=== PATIENT | male | born 1950 | race Caucasian/White ===

== ENCOUNTER 2016-09-05 08:24 | Emergency (ER) | payer BC, MEDICARE, OTHER ==
[2016-09-05 10:02] VITALS: BP 156/72
--- NOTE | 2016-09-08 08:55 | ER ---
DATE SEEN: 09/05/2016 TIME SEEN: The patient was seen at 0830 hours. CHIEF COMPLAINT: Blood per rectum. HISTORY OF PRESENT ILLNESS: This is a 66-year-old patient who is obese, 270 pounds, and has recently been placed on Suboxone in [facility] to go off his chronic narcotics. He got off the Suboxone and is no longer taking chronic narcotics approximately 3 months ago. He has had chronic obstructive lung disease, diabetes, and his glucose is running 400 and 300, hypertension, previous WPW ablation successfully and lower back lumbar surgeries and 1 neck surgery, also shoulder surgery left. Last colonoscopy was 2015. The patient has mild suprapubic abdominal discomfort with GI bleed. Noticed bright red rectal bleeding past 2 days. He also notes increased frequency in urination 09/02/2016. PAST MEDICAL HISTORY: Chronic obstructive lung disease, depression, anxiety, GERD, obesity, prostatism, dyslipidemia, chronic pain, multiple back surgeries, cervical and spine surgery x1. REVIEW OF SYSTEMS: Otherwise, negative except for noted above. PHYSICAL EXAMINATION: VITAL SIGNS: Blood pressure 112/76, heart rate 96 and regular, respirations 20, and 98% saturation room air. CONSTITUTIONAL: The patient is alert, in mild distress. Markedly obese. Has massive protuberant abdomen. He looks his age and is attended by his . HEENT: PERRLA intact. Pharynx without abnormality. NECK: No bruits. No masses in the neck. No thyromegaly. LUNGS: Clear to auscultation without rales, rhonchi, or wheezes. ABDOMEN: Soft, but markedly firm because of his massive obesity. Massive increased abdominal girth. EXTREMITIES: Lower extremities without edema. RECTAL: Rectal inspection, small amount of swelling. No hemorrhoids noted. Rectal exam with lubricant, no hemorrhoids or masses palpable. Neuro: Negative. LABORATORY FINDINGS: Hemoglobin is 14.7, white count 7400, PMNs 63, lymphocytes 28, monos 7, and platelets 320,000. Bright red rectal bleeding, etiology indeterminate, rule out AV malformation, rule out diverticulosis, rule out polyp, rule out cancer (Recent 2015 colonoscopy and no polyps noted or cancers noted). PLAN: Follow up with doctor in a week. He has had a colonoscopy at the [facility], but he said he would probably get a colonoscopy here because he has also private insurance. Other diagnoses; hypertension, obesity, diabetes, WPW ablation successful and WPW controlled without medication, 3 back surgeries, left shoulder surgery, previous surgery for fractured tibia, and colonoscopy 2016. /[id number] ROSARIO/GINGER
== END 2016-09-05 09:50 | disposition home or self-care (01) ==
LOC: FB.ED 08:24
DX: K62.5 Hemorrhage of anus and rectum (principal); E66.9 Obesity, unspecified; J44.9 Chronic obstructive pulmonary disease, unspecified; F32.9 Major depressive disorder, single episode, unspecified; F41.9 Anxiety disorder, unspecified; K21.9 Gastro-esophageal reflux disease without esophagitis; E78.5 Hyperlipidemia, unspecified; Z98.890 Other specified postprocedural states
CPT/HCPCS: 36415; 85025; 99282; 99283

== ENCOUNTER 2016-12-23 20:46 | Emergency (ER) | payer BC, MEDICARE, OTHER ==
[2016-12-23] MEDS ORDERED: Ketorolac 30 MG/ML SDV IM ONE (21:19)
[2016-12-23] MEDS ORDERED: Acetaminophen/HYDROcodone 325-5 MG Tab PO ONE (21:37)
--- NOTE | 2016-12-23 21:40 | EDM.PDOC ---
ED HPI GENERAL MEDICAL PROBLEM - General Chief Complaint: Upper Extremity Injury/Pain Stated Complaint: RIGHT SHOULDER INJURY Time Seen by Provider: 12/23/16 21:25 Source of Information: Reports: Patient History Limitations: Reports: No Limitations - History of Present Illness INITIAL COMMENTS - FREE TEXT/NARRATIVE: 66 yo male presents with R shoulder pain. Had R rotator cuff repair 1 yr ago at [facility]. Tonight was holding his arms above his head and when he let them fall he experienced severe pain the the R shoulder associated with a pop and now has trouble moving that arm at the shoulder. Onset: Today Onset Date: 12/23/16 Onset Time: 20:00 Duration: Minutes: Location: Reports: Upper Extremity, Right Quality: Reports: Ache Severity: Moderate Improves with: Reports: Rest Worsens with: Reports: Movement Context: Reports: Other (Hx of rotator cuff tear. ) Associated Symptoms: Reports: No Other Symptoms Treatments [employer] T[employer]OL: Reports: Other (see below) (none) R shoulder Pain Score (Numeric/FACES): 10 - Related Data Allergies Allergy/AdvReac Type Severity Reaction Status Date / Time clindamycin Allergy Rash Verified 12/23/16 21:19 bee stings Allergy Shortness Uncoded 12/23/16 21:19 of Breath Home Meds: Home Meds Lactobacillus Acidophilus [Probiotic] 1 each PO DAILY 06/14/13 [History] Lansoprazole [Prevacid] 30 mg PO BID 06/14/13 [History] Multivitamin with Minerals [Multiple Vitamin] 1 tab PO DAILY 06/14/13 [History] [place]-3/DHA/Epa/Fish Oil [[place]-3 Fish Oil 1,200 MG Sfgl] 2 tab PO DAILY [History] Simvastatin [Zocor] 20 mg PO DAILY 06/14/13 [History] Tamsulosin [Tamsulosin 24 Hr] 0.4 mg PO DAILY 06/14/13 [History] Vardenafil HCl [Levitra] 10 mg PO DAILY PRN 06/14/13 [History] traZODone 100 mg PO BEDTIME 06/14/13 [History] LORazepam 0.5 mg PO TID 08/07/13 [History] Escitalopram [Lexapro] 10 mg PO DAILY 05/08/15 [History] Escitalopram [Lexapro] 20 mg PO DAILY 05/08/15 [History] Gabapentin [Neurontin] 800 mg PO DAILY 05/08/15 [History] busPIRone [Buspar] 15 mg PO BEDTIME 05/08/15 [History] busPIRone [Buspar] 30 mg PO QAM 05/08/15 [History] Acetaminophen/HYDROcodone [[place] 325-5 MG] 1 tab PO Q4H PRN #8 tab 12/23/16 [Rx] Past Medical History - Past Health History Medical/Surgical History: Denies Medical/Surgical History Cardiovascular History: Reports: High Cholesterol, Hypertension, Other (See Below) Other Cardiovascular History: Hx WPW Respiratory History: Reports: COPD, Sleep Apnea Gastrointestinal History: Reports: Gastritis, GERD, PUD, Other (See Below) Other Gastrointestinal History: umbellical hernia Genitourinary History: Reports: Prostate Disorder Musculoskeletal History: Reports: Arthritis, Fracture Other Musculoskeletal History: Hx L femur fx, L tibia fx, R hand & wrist fx, fx fingers R hand Neurological History: Reports: Concussion Psychiatric History: Reports: Addiction, Anxiety, Depression, Panic Attack Other Psychiatric History: hx ETOH & pain med & drug addiction Endocrine/Metabolic History: Reports: Diabetes, Type II, Obesity/BMI 30+ - Infectious Disease History Infectious Disease History: Reports: Chicken Pox, Measles, Mumps - Past Surgical History HEENT Surgical History: Reports: None, Oral Surgery, Tonsillectomy Cardiovascular Surgical History: Reports: Cardiac Ablation GI Surgical History: Reports: Appendectomy, Colonoscopy, EGD, Hernia, Inguinal Other GI Surgeries/Procedures: L hernia repair Neurological Surgical History: Reports: C-Spine, Laminectomy Other Neurological Surgeries/Procedures: laminectomy x 2, cervical spine surg Musculoskeletal Surgical History: Reports: Shoulder Surgery Other Musculoskeletal Surgeries/Procedures:: R shoulder surg x 2 Social & Family History - Family History Family Medical History: Noncontributory - Tobacco Use Smoking Status *Q: Former Smoker Years of Tobacco use: 35 Used Tobacco, but Quit: No Month Tobacco Last Used: 03/22/1994 Second Hand Smoke Exposure: No - Caffeine Use Caffeine Use: Reports: Coffee - Alcohol Use Days Per Week of Alcohol Use: 0 Number of Drinks Per Day: 0 Total Drinks Per Week: 0 - Recreational Drug Use Recreational Drug Use: No Drug Use in Last 12 Months: No Recreational Drug Type: Reports: Marijuana/Hashish, Oxycodone Recreational Drug Use Frequency: Not Used In Over 3 Months Recreational Drug Last Use: 3 YEARS AGO - Living Situation & Occupation Living situation: Reports: Review of Systems - Review of Systems Review Of Systems: See Below Constitutional: Reports: No Symptoms Eyes: Reports: No Symptoms Ears: Reports: No Symptoms Nose: Reports: No Symptoms Mouth/Throat: Reports: No Symptoms Respiratory: Reports: No Symptoms Cardiovascular: Reports: No Symptoms GI/Abdominal: Reports: No Symptoms Genitourinary: Reports: No Symptoms Musculoskeletal: Reports: Shoulder Pain (right) Skin: Reports: No Symptoms Neurological: Reports: No Symptoms ED EXAM, GENERAL - Physical Exam Exam: See Below Exam Limited By: No Limitations General Appearance: Alert, WD/WN, No Apparent Distress, Obese Nose: Normal Inspection Throat/Mouth: Normal Inspection, Normal Lips, Normal Oropharynx, Normal Voice, No Airway Compromise Head: Atraumatic, Normocephalic Neck: Normal Inspection Respiratory/Chest: No Respiratory Distress, No Accessory Muscle Use Extremities: No Pedal Edema, Limited Range of Motion, Other (scar R shoulder from surgery, minimal pain with palpation, pain mostly with movement. ). No: Normal Range of Motion Neurological: Alert, Oriented, CN II-XII Intact, Normal Cognition, No Motor/ Sensory Deficits Psychiatric: Normal Affect, Normal Mood Skin Exam: Warm, Dry, Intact, Normal Color, No Rash Lymphatic: No Adenopathy Course - Vital Signs Last Recorded V/S: Last Vital Signs Temp 36.3 C 12/23/16 20:50 Pulse 74 12/23/16 20:50 Resp 18 12/23/16 20:50 BP 126/73 12/23/16 20:50 Pulse Ox 97 12/23/16 20:50 - Orders/Labs/Meds Orders: Active Orders 24 hr Category Date Time Status Shoulder Comp Rt [CR] Stat Exams 12/23/16 21:04 Taken Meds: Medications Discontinued Medications Generic Name Dose Route Start Last Admin Trade Name Freq PRN Reason Stop Dose Admin Ketorolac Tromethamine 30 mg 12/23/16 21:19 12/23/16 21:25 Toradol IM 12/23/16 21:20 30 mg ONETIME ONE Administration - Radiology Interpretation Free Text/Narrative:: R shoulder X-ray- no acute pathology Departure - Departure Time of Disposition: 21:42 Disposition: Home, Self-Care 01 Condition: Good Clinical Impression: Shoulder pain, right Qualifiers: Chronicity: acute Qualified Code(s): M25.511 - Pain in right shoulder Rotator cuff disorder Qualifiers: Laterality: right Qualified Code(s): M67.911 - Unspecified disorder of synovium and tendon, right shoulder - Discharge Information Prescriptions: Acetaminophen/HYDROcodone [C[place] 325-5 MG] 1 tab PO Q4H PRN #8 tab PRN Reason: Pain Referrals: Luigi Tee MD [Primary Care Provider] - Forms: ED Department Discharge Additional Instructions: Wear sling at all times. F/U with your orthopedic doctor as soon as you can get in, call for an appt. Take acetaminophen for mild pain and Cleveland for severe pain. You may add ibuprofen 400 mg every 6 hrs with food for additional pain relief. - My Orders Last 24 Hours: My Active Orders 12/23/16 21:04 Shoulder Comp Rt [CR] Stat - Assessment/Plan Last 24 Hours: My Active Orders 12/23/16 21:04 Shoulder Comp Rt [CR] Stat
[2016-12-23 22:38] VITALS: BP 106/86
--- NOTE | 2016-12-24 11:46 | CR ---
INDICATION: Pain. Dropped arm, felt something pop. RIGHT SHOULDER: Three views of the right shoulder revealed moderate hypertrophic degenerative changes at the glenohumeral joint and also at the AC joint. There does appear to be some narrowing of mild to moderate degree of the glenohumeral joint surface with some deformity of the humeral head and the glenoid fossa also. There also is some sclerosis at the undersurface of the acromion, suggesting rotator cuff injury and/or degeneration. No other bone or joint abnormality was identified - no acute fracture or dislocation was seen. IMPRESSION: 1. Osteoarthritis. 2. Possible impingement compatible with rotator cuff injury and/or degeneration. MTDD
== END 2016-12-23 21:57 | disposition home or self-care (01) ==
LOC: FB.ED 20:46
DX: M67.911 Unspecified disorder of synovium and tendon, right shoulder (principal); E78.00 Pure hypercholesterolemia, unspecified; I10 Essential (primary) hypertension; J44.9 Chronic obstructive pulmonary disease, unspecified; K21.9 Gastro-esophageal reflux disease without esophagitis; F41.9 Anxiety disorder, unspecified; F32.9 Major depressive disorder, single episode, unspecified; E11.9 Type 2 diabetes mellitus without complications; E66.9 Obesity, unspecified; Z87.891 Personal history of nicotine dependence; Z91.030 Bee allergy status; Z88.1 Allergy status to other antibiotic agents; Z79.899 Other long term (current) drug therapy
CPT/HCPCS: 73030; 96372; 99283; A9270; J1885

== ENCOUNTER 2017-05-12 19:35 | Emergency (ER) | payer BC, MEDICARE, OTHER ==
[2017-05-12] MEDS ORDERED: Ketorolac 30 MG/ML SDV IVPUSH ONE (19:50)
--- NOTE | 2017-05-12 19:54 | EDM.PDOC ---
ED HPI GENERAL MEDICAL PROBLEM - General Stated Complaint: CHEST PAIN Time Seen by Provider: 05/12/17 19:35 Source of Information: Reports: Patient, Family History Limitations: Reports: No Limitations - History of Present Illness INITIAL COMMENTS - FREE TEXT/NARRATIVE: 66 y.o.w.m with a H/O CAD, came to the ed due to pain at his right lat neck, left ant chest wall with deep inspiration. Pt had his right shoulder replaced 1 week ago. No diaphoresis, no lightheadedness no dizziness no SOB. No Trauma. No other acute medial issues. BP 166/90 pulse 78 RR 18 Pulse ox 96% on RA Temp 36.7 Onset: Gradual Onset Date: 05/11/17 Onset Time: 08:00 Duration: Hour(s):, Intermittent Location: Reports: Neck, Chest, Abdomen Quality: Reports: Ache, Burning, Dull, Pressure, Same as Previous Episode Severity: Mild Improves with: Reports: Medication, Rest Worsens with: Reports: Movement Context: Reports: Activity, Exercise, Other (shoulder replacememnt 1 week ago) Associated Symptoms: Reports: No Other Symptoms, Chest Pain Chest Pain Score (Numeric/FACES): 6 - Related Data Allergies Allergy/AdvReac Type Severity Reaction Status Date / Time clindamycin Allergy Rash Verified 05/12/17 19:59 bee stings Allergy Shortness Uncoded 05/12/17 19:59 of Breath Home Meds: Home Meds Lactobacillus Acidophilus [Probiotic] 1 each PO DAILY 06/14/13 [History] Lansoprazole [Prevacid] 30 mg PO BID 06/14/13 [History] Multivitamin with Minerals [Multiple Vitamin] 1 tab PO DAILY 06/14/13 [History] [place]-3/DHA/Epa/Fish Oil [[place]-3 Fish Oil 1,200 MG Sfgl] 1 tab PO DAILY [History] Simvastatin [Zocor] 20 mg PO BEDTIME 06/14/13 [History] Tamsulosin [Tamsulosin 24 Hr] 0.4 mg PO DAILY 06/14/13 [History] traZODone 100 mg PO BEDTIME 06/14/13 [History] Ergocalciferol (Vitamin D2) [Vitamin D2] 50,000 unit PO DAILY 12/24/16 [History] FLUoxetine [PROzac] 20 mg PO DAILY 12/24/16 [History] Fluticasone Propionate [Flonase] 1 spray NASBOTH BID 12/24/16 [History] Gabapentin [Neurontin] 600 mg PO TID 12/24/16 [History] Lidocaine 1 each TP ASDIRECTED PRN 12/24/16 [History] Losartan [Cozaar] 50 mg PO BEDTIME 12/24/16 [History] Meloxicam [Meloxicam] 15 mg PO BEDTIME 12/24/16 [History] metFORMIN [Glucophage XR] 500 mg PO BIDMEALS 12/24/16 [History] Past Medical History - Past Health History Medical/Surgical History: Denies Medical/Surgical History Cardiovascular History: Reports: High Cholesterol, Hypertension, Other (See Below) Other Cardiovascular History: Hx WPW Respiratory History: Reports: COPD, Sleep Apnea Gastrointestinal History: Reports: Gastritis, GERD, PUD, Other (See Below) Other Gastrointestinal History: umbellical hernia Genitourinary History: Reports: Prostate Disorder Musculoskeletal History: Reports: Arthritis, Fracture Other Musculoskeletal History: Hx L femur fx, L tibia fx, R hand & wrist fx, fx fingers R hand Neurological History: Reports: Concussion Psychiatric History: Reports: Addiction, Anxiety, Depression, Panic Attack Other Psychiatric History: hx ETOH & pain med & drug addiction Endocrine/Metabolic History: Reports: Diabetes, Type II, Obesity/BMI 30+ - Infectious Disease History Infectious Disease History: Reports: Chicken Pox, Measles, Mumps - Past Surgical History HEENT Surgical History: Reports: None, Oral Surgery, Tonsillectomy Cardiovascular Surgical History: Reports: Cardiac Ablation GI Surgical History: Reports: Appendectomy, Colonoscopy, EGD, Hernia, Inguinal Other GI Surgeries/Procedures: L hernia repair Neurological Surgical History: Reports: C-Spine, Laminectomy Other Neurological Surgeries/Procedures: laminectomy x 2, cervical spine surg Musculoskeletal Surgical History: Reports: Shoulder Surgery Other Musculoskeletal Surgeries/Procedures:: R shoulder surg x 2 Social & Family History - Family History Family Medical History: Noncontributory - Tobacco Use Smoking Status *Q: Former Smoker Years of Tobacco use: 35 Used Tobacco, but Quit: No Month Tobacco Last Used: 03/22/1994 Second Hand Smoke Exposure: No - Caffeine Use Caffeine Use: Reports: Coffee - Alcohol Use Days Per Week of Alcohol Use: 0 Number of Drinks Per Day: 0 Total Drinks Per Week: 0 - Recreational Drug Use Recreational Drug Use: No Drug Use in Last 12 Months: No Recreational Drug Type: Reports: Marijuana/Hashish, Oxycodone Other Recreational Drug Type: Hx pain med, meth & pot abuse. Just got out of tx for pain med abuse couple months ago. Hasn't used hard drugs since 2005. Recreational Drug Use Frequency: Not Used In Over 3 Months Recreational Drug Last Use: 3 YEARS AGO - Living Situation & Occupation Living situation: Reports: ED ROS GENERAL - Review of Systems Review Of Systems: See Below Constitutional: Reports: No Symptoms HEENT: Reports: No Symptoms Respiratory: Reports: No Symptoms Cardiovascular: Reports: Chest Pain Endocrine: Reports: No Symptoms GI/Abdominal: Reports: No Symptoms : Reports: No Symptoms Musculoskeletal: Reports: No Symptoms Skin: Reports: No Symptoms Neurological: Reports: No Symptoms Psychiatric: Reports: No Symptoms Hematologic/Lymphatic: Reports: No Symptoms Immunologic: Reports: No Symptoms ED EXAM, GENERAL - Physical Exam Exam: See Below Exam Limited By: No Limitations General Appearance: Alert, WD/WN, Mild Distress Eye Exam: Bilateral Eye: Normal Inspection Ears: Normal External Exam Ear Exam: Bilateral Ear: Auricle Normal Nose: Normal Inspection, Normal Mucosa Throat/Mouth: Normal Inspection, Normal Lips Head: Atraumatic, Normocephalic Neck: Normal Inspection, Supple, Non-Tender, Full Range of Motion Respiratory/Chest: No Respiratory Distress, Lungs Clear, Normal Breath Sounds Cardiovascular: Normal Peripheral Pulses, Regular Rate, Rhythm, No Edema, No Gallop Peripheral Pulses: 1+: Brachial (R) GI/Abdominal: Normal Bowel Sounds, Soft (Male) Exam: Deferred Rectal (Males) Exam: Deferred Back Exam: Normal Inspection, Full Range of Motion Extremities: Normal Inspection, Normal Range of Motion, Non-Tender, No Pedal Edema Neurological: Alert, Oriented, CN II-XII Intact, Normal Cognition Psychiatric: Normal Affect, Normal Mood Skin Exam: Warm, Dry, Intact, Normal Color, No Rash Lymphatic: No Adenopathy EKG INTERPRETATION EKG Date: 05/12/17 Time: 19:45 Rhythm: NSR Rate (Beats/Min): 60 [place]: Normal P-Wave: Present QRS: Normal ST-T: Normal QT: Normal Comparison: NA - No Prior EKG Course - Vital Signs Text/Narrative:: 66 y.o.w.m with a H/O CAD, came to the ed due to pain at his right lat neck, left ant chest wall with deep inspiration. Pt had his right shoulder replaced 1 week ago. No diaphoresis, no lightheadedness no dizziness no SOB. No Trauma. No other acute medial issues. BP 166/90 pulse 78 RR 18 Pulse ox 96% on RA Temp 36.7 PE: WNWD W M NAD ECG: NSR no acute ST/T wave changes CXR: NAD CTA neg for central PE Labs: Elevated D Dimer to 1680 Impression: Atypical chest pain TxL Toradol Reexam: Pain subsided Pt refused to be admitted under any circumstances/vehemently Plan: D/C with instructions Last Recorded V/S: Last Vital Signs Temp 36.5 C 05/12/17 20:02 Pulse 66 05/12/17 23:10 Resp 17 05/12/17 23:10 BP 149/91 H 05/12/17 23:10 Pulse Ox 100 05/12/17 23:10 - Orders/Labs/Meds Labs: Laboratory Tests 05/12/17 05/12/17 05/12/17 Range/Units 19:55 19:55 19:55 WBC 9.0 (4.5-12.0) X10-3/uL RBC 4.16 L (4.30-5.75) x10(6)uL Hgb 12.3 (11.5-15.5) g/dL Hct 36.2 (30.0-51.3) % MCV 87.2 (80-96) fL MCH 29.5 (27.7-33.6) pg MCHC 33.8 (32.2-35.4) g/dL RDW 13.5 (11.5-15.5) % Plt Count 336 (125-369) X10(3)uL MPV 6.8 L (7.4-10.4) fL Neut % (Auto) 62.5 (46-82) % Lymph % (Auto) 26.4 (13-37) % Taney % (Auto) 6.6 (4-12) % Eos % (Auto) 4 (1.0-5.0) % Baso % (Auto) 1 (0-2) % Neut # (Auto) 5.5 (1.6-8.3) # Lymph # (Auto) 2.4 (0.6-5.0) # Taney # (Auto) 0.6 (0.0-1.3) # Eos # (Auto) 0.4 (0.0-0.8) # Baso # (Auto) 0.1 (0.0-0.2) # D-Dimer, Quantitative 1690 H (100-400) ng/mL Sodium 143 (135-145) mmol/L Potassium 3.7 (3.5-5.3) mmol/L Chloride 106 (100-110) mmol/L Carbon Dioxide 28 (21-32) mmol/L BUN 21 H (7-18) mg/dL Creatinine 1.1 (0.70-1.30) mg/dL Est Cr Clr Drug Dosing 66.95 mL/min Estimated GFR (MDRD) > 60 (>60) BUN/Creatinine Ratio 19.1 (9-20) Glucose 124 H (80-116) mg/dL Calcium 9.1 (8.6-10.2) mg/dL Creatine Kinase 65 (60-160) IU/L Troponin I (<0.017-0.056) ng/mL NT-Pro-B Natriuret Pep (<=125) pg/mL 05/12/17 05/12/17 Range/Units 19:55 19:55 WBC (4.5-12.0) X10-3/uL RBC (4.30-5.75) x10(6)uL Hgb (11.5-15.5) g/dL Hct (30.0-51.3) % MCV (80-96) fL MCH (27.7-33.6) pg MCHC (32.2-35.4) g/dL RDW (11.5-15.5) % Plt Count (125-369) X10(3)uL MPV (7.4-10.4) fL Neut % (Auto) (46-82) % Lymph % (Auto) (13-37) % Taney % (Auto) (4-12) % Eos % (Auto) (1.0-5.0) % Baso % (Auto) (0-2) % Neut # (Auto) (1.6-8.3) # Lymph # (Auto) (0.6-5.0) # Taney # (Auto) (0.0-1.3) # Eos # (Auto) (0.0-0.8) # Baso # (Auto) (0.0-0.2) # D-Dimer, Quantitative (100-400) ng/mL Sodium (135-145) mmol/L Potassium (3.5-5.3) mmol/L Chloride (100-110) mmol/L Carbon Dioxide (21-32) mmol/L BUN (7-18) mg/dL Creatinine (0.70-1.30) mg/dL Est Cr Clr Drug Dosing mL/min Estimated GFR (MDRD) (>60) BUN/Creatinine Ratio (9-20) Glucose (80-116) mg/dL Calcium (8.6-10.2) mg/dL Creatine Kinase (60-160) IU/L Troponin I < 0.017 L (<0.017-0.056) ng/mL NT-Pro-B Natriuret Pep 290 H (<=125) pg/mL Meds: Medications Discontinued Medications Generic Name Dose Route Start Last Admin Trade Name Freq PRN Reason Stop Dose Admin Iopamidol 100 ml 05/12/17 21:40 05/12/17 21:42 Isovue-370 (76%) IV 05/12/17 21:41 82 ml . DIRECTED ONE Administration Ketorolac Tromethamine 15 mg 05/12/17 19:50 05/12/17 20:12 Toradol IVPUSH 05/12/17 19:51 15 mg ONETIME ONE Administration Ketorolac Tromethamine 15 mg 05/12/17 23:02 05/12/17 23:06 Toradol IVPUSH 05/12/17 23:03 15 mg ONETIME STA Administration Sodium Chloride 10 ml 05/12/17 20:11 05/12/17 20:13 Saline Flush FLUSH 10 ml ASDIRECTED PRN Administration Keep Vein Open Departure - Departure Time of Disposition: 23:23 Disposition: Home, Self-Care 01 Condition: Good Clinical Impression: Atypical chest pain Instructions: Nonspecific Chest Pain Referrals: Luigi Tee MD [Primary Care Provider] - Forms: ED Department Discharge Additional Instructions: Please f/u with your PMD, come back if your symptoms get worse acutely
[2017-05-12] MEDS: Sodium Chloride 0.9% 10 ML Syringe FLUSH PRN ×2 (20:11→20:13)
[2017-05-12] MEDS ORDERED: Iopamidol 755 Mg/ML 100 ML Bottle IV ONE (21:40)
[2017-05-12] MEDS ORDERED: Ketorolac 30 MG/ML SDV IVPUSH STA (23:02)
[2017-05-12 23:14] VITALS: BP 149/91
--- NOTE | 2017-05-13 10:27 | CR ---
INDICATION: Chest pain. CHEST: AP portable upright view of the chest 05/12/2017 was compared with 05/08, 08/07/2013, 06/15/2012, and 12/09/2010. There is again noted evidence of exogenous obesity. The heart is prominent and may be somewhat enlarged. The aorta is tortuous and calcified in the arch area. Overlying EKG leads are noted. Total shoulder arthroplasty is now seen on the right. A definite active infiltrate or effusion was not identified. IMPRESSION: 1. No definite acute process. 2. ASHD with probable cardiomegaly. 3. Exogenous obesity. MTDD
== END 2017-05-12 23:30 | disposition home or self-care (01) ==
LOC: FB.ED 19:35
DX: R07.89 Other chest pain (principal); E78.00 Pure hypercholesterolemia, unspecified; I10 Essential (primary) hypertension; K21.9 Gastro-esophageal reflux disease without esophagitis; E11.9 Type 2 diabetes mellitus without complications; E66.9 Obesity, unspecified; Z91.030 Bee allergy status; Z88.1 Allergy status to other antibiotic agents; Z79.899 Other long term (current) drug therapy; Z87.891 Personal history of nicotine dependence
CPT/HCPCS: 36415; 71045; 71275; 80048; 82550; 83880; 84484; 85025; 85379; 93005; 96374; 99285; J1885; J7050; Q9967; 96376; 99284

== ENCOUNTER 2020-08-26 21:19 | Emergency (ER) | payer MEDICARE, OTHER ==
--- NOTE | 2020-08-26 21:45 | EDM.PDOC ---
ED HPI GENERAL MEDICAL PROBLEM - General Stated Complaint: SWEATY, DIZZINESS Time Seen by Provider: 08/26/20 21:45 Source of Information: Reports: Patient History Limitations: Reports: No Limitations - History of Present Illness INITIAL COMMENTS - FREE TEXT/NARRATIVE: 69-year-old male who reports he has had cough and left and central chest pain for the past 5 weeks. He reports that he has been seeming Dr. Lundberg in regard to this and he has had chest x-rays and multiple Covid test and all this has been reportedly negative. He reports the cough seems to be worse when he is lying down and he has had some production of phlegm but it has been intermittent and scant. He has not really felt well over the past 1-2 weeks and he feels that his symptoms are worsening. Today he felt weak and dizzy when he was standing and just prior to numbing into the emergency department today at approximately 8 PM. He became very sweaty and very dizzy when he was standing and trying to walk and he felt that he might pass out. He was weak all over. He has some mild nausea associated with this but did not have any vomiting. He did report that he had been out in the heat some today and he really not been drinking liquids that well today. He has had no fevers or chills. He does report urine output today but he states it seems to be less than normal. His symptoms did seem to improve when he rested. The pain in his chest is a somewhat sharp pain and it is worse with cough. He reports that is a 2-3/10 but does go up to a 5-6/10 with coughing. He presents to the emergency department via private vehicle with his . There are no other associated signs or symptoms. There are no other modifying factors. Onset: Other (Ongoing symptoms of cough, difficulty breathing and chest pain for the past 5 weeks. Dizziness and weakness began mostly today with some feeling of malaise and Tums over the past 1-2 weeks..) Duration: Getting Worse Location: Reports: Chest Severity: Moderate Improves with: Reports: Rest Worsens with: Reports: Other (Activity), Movement Context: Reports: Other (As above.) Associated Symptoms: Reports: Chest Pain, Cough, Malaise, Shortness of Breath, Weakness Treatments ETL MANAGER: Reports: Other (see below) (Nothing today. He does have a nebulizer at home but he did not use it today. Has inhalers but he has not used those today.) - Related Data Allergies Allergy/AdvReac Type Severity Reaction Status Date / Time terazosin Allergy Other Verified 08/03/18 08:31 bee stings Allergy Shortness Uncoded 08/02/18 13:18 of Breath Home Meds: Home Meds Lactobacillus Acidophilus [Probiotic] 1 each PO DAILY 06/14/13 [History] Lansoprazole [Prevacid] 30 mg PO BID 06/14/13 [History] Multivitamin with Minerals [Multiple Vitamin] 1 tab PO DAILY 06/14/13 [History] [place]-3/DHA/Epa/Fish Oil [[place]-3 Fish Oil 1,200 MG Sfgl] 2 cap PO BID 06/14/13 [History] Tamsulosin [Tamsulosin 24 Hr] 0.4 mg PO DAILY 06/14/13 [History] Ergocalciferol (Vitamin D2) [Vitamin D2] 50,000 unit PO WEEKLY 12/24/16 [History] FLUoxetine [PROzac] 2 cap PO DAILY 12/24/16 [History] Fluticasone Propionate [Flonase] 2 spray NASBOTH BID 12/24/16 [History] Gabapentin [Neurontin] 600 mg PO QID 12/24/16 [History] Lidocaine 1 each TP ASDIRECTED PRN 12/24/16 [History] Losartan [Cozaar] 50 mg PO DAILY 12/24/16 [History] Meloxicam 15 mg PO DAILY 12/24/16 [History] Acetaminophen 2 tab PO Q6HR PRN 08/02/18 [History] Benzonatate 1 cap PO Q6HR PRN 08/02/18 [History] LORazepam 1 tab PO DAILY 08/02/18 [History] Lidocaine 5% 1 applic TOP BID PRN 08/02/18 [History] Loratadine 1 tab PO DAILY 08/02/18 [History] Psyllium [Metamucil SF] 1 tsp PO DAILY PRN 08/02/18 [History] Sennosides/Docusate Sodium [Docusate Sodium-Senna Tablet] 2 tab PO BID PRN 08/02/18 [History] Simvastatin 1.5 tab PO BEDTIME 08/02/18 [History] Testosterone Cypionate 1 ml IM ASDIRECTED 08/02/18 [History] metFORMIN HCl [Metformin HCl] 1 tab PO BID 08/02/18 [History] methocarbamoL [Methocarbamol] 1 tab PO TID PRN 08/02/18 [History] traZODone 2 tab PO BEDTIME 08/02/18 [History] Doxycycline [Vibra-Tabs] 100 mg PO BID 10 Days #20 tablet 08/27/20 [Rx] predniSONE [Prednisone] 60 mg PO QAM 5 Days #15 tablet 08/27/20 [Rx] Past Medical History Cardiovascular History: Reports: CAD, High Cholesterol Other Cardiovascular History: [id number] SYNDROME Respiratory History: Reports: Sleep Apnea, Other (See Below) Other Respiratory History: CHRONIC COUGH Gastrointestinal History: Reports: GERD, Hemorrhoids, PUD Genitourinary History: Reports: Prostate Disorder Musculoskeletal History: Reports: Back Pain, Chronic, Osteoporosis Other Musculoskeletal History: NEUROPATHY, CERVICAL SOMATIC DYSFUNCTION, SOMATIC DYSFUNCTION OF RIB, SPINAL STENOSIS OF LUMBAR REGION, DEGENERATION OF INTERVERTEBRAL DISC, MYOFASCIAL PAIN, PELVIC SOMATIC DYSFUNCTION, SACRAL SOMATIC DYSFUNCTION Neurological History: Reports: Migraines Psychiatric History: Reports: Addiction, Depression, PTSD Other Psychiatric History: OPIOID DEPENDENCE IN REMISSION, CANNABIS ABUSE IN REMISSION, ALCOHOL DEPENDENCE IN REMISSION Endocrine/Metabolic History: Reports: Diabetes, Type II, Obesity/BMI 30+ Other Endocrine/Metabolic History: HYPOGONADISM - Infectious Disease History Infectious Disease History: Reports: Influenza - Past Surgical History HEENT Surgical History: Reports: Oral Surgery, Tonsillectomy Cardiovascular Surgical History: Reports: Cardiac Ablation (Or WPW.) GI Surgical History: Reports: Appendectomy, Colonoscopy, EGD, Hernia Repair/Other Neurological Surgical History: Reports: Laminectomy, Lumbar Spine Musculoskeletal Surgical History: Reports: Arthroscopic Procedure, ORIF (Left tib-fib) Social & Family History - Tobacco Use Tobacco Use Status *Q: Unknown Ever Used Tobacco (Non-smoker.) - Caffeine Use Caffeine Use: Reports: Coffee - Alcohol Use Alcohol Use History: Yes Alcohol Use Comment: Sober for the past 10 years. - Living Situation & Occupation Living situation: Reports: Occupation: Retired ED ROS GENERAL - Review of Systems Review Of Systems: See Below Constitutional: Reports: Malaise, Weakness, Diaphoresis HEENT: Denies: Throat Pain, Vision Change Respiratory: Reports: Shortness of Breath, Wheezing, Pleuritic Chest Pain, Cough, Sputum Cardiovascular: Reports: Chest Pain, Lightheadedness, Other (Near syncope) GI/Abdominal: Reports: Nausea. Denies: Vomiting : Reports: Hematuria Musculoskeletal: Reports: Other (No leg swelling). Denies: Neck Pain Skin: Reports: Diaphoresis. Denies: Rash Neurological: Reports: Dizziness, Headache Psychiatric: Reports: Mood Lability Hematologic/Lymphatic: Denies: Easy Bleeding, Easy Bruising ED EXAM, GENERAL - Physical Exam Exam: See Below Exam Limited By: No Limitations General Appearance: Alert, Mild Distress, Obese, Other (Awake and alert. Nontoxic appearing.) Eye Exam: Bilateral Eye: EOMI, Normal Inspection, PERRL Ears: Normal External Exam, Hearing Grossly Normal Ear Exam: Bilateral Ear: Auricle Normal Nose: Normal Inspection, Normal Mucosa, No Blood Throat/Mouth: Normal Voice, No Airway Compromise, Other (Dry mucous membranes.) Head: Atraumatic, Normocephalic Neck: Normal Inspection, Supple, Non-Tender, Full Range of Motion Respiratory/Chest: No Respiratory Distress, No Accessory Muscle Use, Wheezing (Bilaterally) Cardiovascular: Normal Peripheral Pulses, Regular Rate, Rhythm, No Edema Peripheral Pulses: 2+: Radial (L), Radial (R) GI/Abdominal: Normal Bowel Sounds, Soft, Non-Tender, No Mass, Other (Protuberant) Back Exam: Normal Inspection Extremities: Normal Inspection, Normal Range of Motion, No Pedal Edema Neurological: Alert, Oriented, CN II-XII Intact, Normal Cognition, No Motor/Sensory Deficits Psychiatric: Normal Affect Skin Exam: Warm, Dry, Intact, Normal Color, No Rash #1 Interpretation EKG Date: 08/26/20 Time: 21:19 Rhythm: NSR Rate (Beats/Min): 86 [place]: Normal P-Wave: Present QRS: Normal ST-T: Other (Inverted and flat T's in III and aVF.) QT: Normal Comparison: No Change (No change from an EKG that was performed on 05/12/2017.) Course - Orders/Labs/Meds Orders: Active Orders 24 hr Category Date Time Status EKG Documentation Completion [RC] ASDIRECTED Care 08/26/20 21:59 Active RT Aerosol Therapy [RC] ASDIRECTED Care 08/27/20 00:56 Active Chest 2V [CR] Stat Exams 08/26/20 21:58 Taken Sodium Chloride 0.9% [Normal Saline] 1,000 ml Med 08/26/20 22:00 Active IV ASDIRECTED Sodium Chloride 0.9% [Saline Flush] Med 08/26/20 21:58 Active 10 ml FLUSH ASDIRECTED PRN Peripheral IV Insertion Adult [OM.PC] Routine Oth 08/26/20 21:58 Ordered EKG 12 Lead [EK] Routine Ther 08/26/20 21:58 Ordered Medication Orders Sodium Chloride (Normal Saline) 1,000 mls @ 125 mls/hr IV ASDIRECTED JULIAN Last Admin: 08/27/20 00:51 Dose: 125 mls/hr Documented by: LEANDER Sodium Chloride (Sodium Chloride 0.9% 10 Ml Syringe) 10 ml FLUSH ASDIRECTED PRN PRN Reason: Keep Vein Open Labs: Laboratory Tests 08/26/20 08/26/20 08/26/20 Range/Units 21:58 22:12 22:12 WBC 8.3 (3.2-10.1) x10-3/uL RBC 4.81 (3.90-5.90) x10(6)uL Hgb 14.6 (12.9-17.7) g/dL Hct 43.3 (38.3-50.1) % MCV 90.0 (80.8-98.7) fL MCH 30.3 (27.0-33.3) pg MCHC 33.7 (28.7-35.3) g/dL RDW 13.7 (12.4-15.0) % Plt Count 308 (117-477) x10(3)uL MPV 6.9 (6.7-11.0) fL Neut % (Auto) 49.6 (40.3-71.8) % Lymph % (Auto) 38.3 (15.8-45.3) % Ray % (Auto) 8.0 (5.5-15.2) % Eos % (Auto) 3.4 (0.1-6.8) % Baso % (Auto) 0.7 (0.3-3.8) % Neut # (Auto) 4.1 (1.7-6.9) x10-3/uL Lymph # (Auto) 3.2 (0.5-4.5) x10-3/uL Ray # (Auto) 0.7 (0.0-1.2) x10-3/uL Eos # (Auto) 0.3 (0.0-0.6) x10-3/uL Baso # (Auto) 0.1 (0.0-0.3) x10-3/uL D-Dimer, Quantitative 0.49 (0.0-0.59) mg/LFEU Sodium 140 (135-145) mmol/L Potassium 3.9 (3.5-5.3) mmol/L Chloride 102 (100-110) mmol/L Carbon Dioxide 28 (21-32) mmol/L BUN 20 H (7-18) mg/dL Creatinine 1.4 H (0.70-1.30) mg/dL Est Cr Clr Drug Dosing TNP Estimated GFR (MDRD) 50 L (>60) BUN/Creatinine Ratio 14.3 (9-20) Glucose 134 H (80-116) mg/dL Calcium 8.1 L (8.6-10.2) mg/dL Total Bilirubin 0.2 (0.1-1.3) mg/dL AST 15 (5-25) IU/L ALT 32 (12-36) U/L Alkaline Phosphatase 78 (56-112) IU/L Troponin I (4.0-60.3) pg/mL C-Reactive Protein (0.5-0.9) mg/dL NT-Pro-B Natriuret Pep (<=125) pg/mL Total Protein 7.2 (6.0-8.0) g/dL Albumin 3.3 (3.2-4.6) g/dL Globulin 3.9 g/dL Albumin/Globulin Ratio 0.9 SARS-CoV-2 RNA (MIKA) (NEGATIVE) 08/26/20 08/26/20 Range/Units 22:12 23:55 WBC (3.2-10.1) x10-3/uL RBC (3.90-5.90) x10(6)uL Hgb (12.9-17.7) g/dL Hct (38.3-50.1) % MCV (80.8-98.7) fL MCH (27.0-33.3) pg MCHC (28.7-35.3) g/dL RDW (12.4-15.0) % Plt Count (117-477) x10(3)uL MPV (6.7-11.0) fL Neut % (Auto) (40.3-71.8) % Lymph % (Auto) (15.8-45.3) % Ray % (Auto) (5.5-15.2) % Eos % (Auto) (0.1-6.8) % Baso % (Auto) (0.3-3.8) % Neut # (Auto) (1.7-6.9) x10-3/uL Lymph # (Auto) (0.5-4.5) x10-3/uL Ray # (Auto) (0.0-1.2) x10-3/uL Eos # (Auto) (0.0-0.6) x10-3/uL Baso # (Auto) (0.0-0.3) x10-3/uL D-Dimer, Quantitative (0.0-0.59) mg/LFEU Sodium (135-145) mmol/L Potassium (3.5-5.3) mmol/L Chloride (100-110) mmol/L Carbon Dioxide (21-32) mmol/L BUN (7-18) mg/dL Creatinine (0.70-1.30) mg/dL Est Cr Clr Drug Dosing Estimated GFR (MDRD) (>60) BUN/Creatinine Ratio (9-20) Glucose (80-116) mg/dL Calcium (8.6-10.2) mg/dL Total Bilirubin (0.1-1.3) mg/dL AST (5-25) IU/L ALT (12-36) U/L Alkaline Phosphatase (56-112) IU/L Troponin I 5.5 (4.0-60.3) pg/mL C-Reactive Protein 0.6 (0.5-0.9) mg/dL NT-Pro-B Natriuret Pep 94 (<=125) pg/mL Total Protein (6.0-8.0) g/dL Albumin (3.2-4.6) g/dL Globulin g/dL Albumin/Globulin Ratio SARS-CoV-2 RNA (MIKA) Negative (NEGATIVE) Meds: Medications Generic Name Dose Route Start Last Admin Trade Name Freq PRN Reason Stop Dose Admin Sodium Chloride 1,000 mls @ 125 mls/hr 08/26/20 22:00 08/27/20 00:51 Normal Saline IV 125 mls/hr ASDIRECTED JULIAN Administration Sodium Chloride 10 ml 08/26/20 21:58 Sodium Chloride 0.9% 10 Ml Syringe FLUSH ASDIRECTED PRN Keep Vein Open Discontinued Medications Generic Name Dose Route Start Last Admin Trade Name Surinder PRN Reason Stop Dose Admin Albuterol/Ipratropium 3 ml 08/27/20 00:55 08/27/20 01:10 Albuterol/Ipratropium 3.0-0.5 Mg/3 Ml Neb Soln NEB 08/27/20 00:56 3 ml ONETIME ONE Administration Ceftriaxone Sodium 1 gm 08/27/20 00:56 08/27/20 01:13 Ceftriaxone 1 Gm Vial IVPUSH 08/27/20 00:57 1 gm ONETIME ONE Administration Doxycycline Hyclate 200 mg 08/27/20 00:55 08/27/20 01:23 Doxycycline 100 Mg Tab PO 08/27/20 00:56 200 mg ONETIME ONE Administration Sodium Chloride 500 mls @ 999 mls/hr 08/26/20 22:00 08/26/20 23:45 Normal Saline IV 08/26/20 22:30 999 mls/hr .BOLUS ONE Administration Methylprednisolone Sodium Succinate 125 mg 08/27/20 00:56 08/27/20 01:08 Methylprednisolone Sodium Succinate 125 Mg/2 Ml Sdv IVPUSH 08/27/20 00:57 125 mg ONETIME ONE Administration - Radiology Interpretation Free Text/Narrative:: Chest x-ray PA and lateral showed haziness bilaterally that I felt represented bilateral infiltrates. - Re-Assessments/Exams Free Text/Narrative Re-Assessment/Exam: 08/26/20 22:30: The patient's white blood cell count with a 0.3. His hemoglobin was normal. A d-dimer was normal. CRP was normal. Trileptal follows normal area BUN was 20 and creatinine 1.4 which is elevated from previous readings. His glucose was 134. His chest x-ray, I felt, showed bilateral haziness consistent with bilateral pneumonia. His proBNP was normal. His troponin was normal. I did order Covid test. I am awaiting this before I give him a nebulizer treatment. 08/27/20 00:50: The patient's Covid test was negative. I have given the patient normal saline 1 L as a bolus and he arty feels much improved. He has had no more drops in his blood pressure and he no longer feels dizzy with sitting or standing. He feels that he is breathing better as well. I will treat the patient with Rocephin 1 g IV and doxycycline 200 mg orally. I will also give the patient Solu-Medrol 125 mg IV. 08/27/20 01:50: The patient feels much improved. He was ambulatory without any problems. He has no more dizziness. His breathing feels much improved. His coughing is decreased. I don't really hear much in the way of wheezing anymore. I feel that this is likely reactive airway disease with pneumonia. I will place patient on doxycycline 100 mg twice daily for 10 days. I we'll also place the patient on prednisone 60 mg daily for the next 5 days. He's to avoid any heat exposure for the next week. He also is to rest and increase his fluid intake. I have also encouraged him to use his nebulizer and his inhalers more frequently. He is to follow-up with his primary doctor. Precautions and reasons for return to the emergency department were discussed with the patient and his while he was in the emergency department for details of the patient's history of instructions. Departure - Departure Time of Disposition: 01:58 Disposition: Home, Self-Care 01 Condition: Good (Improved) Clinical Impression: Dehydration, Acute kidney injury, Transient hypotension Bilateral pneumonia Qualifiers: Pneumonia type: due to unspecified organism Lung location: unspecified part of lung Qualified Code(s): J18.9 - Pneumonia, unspecified organism Reactive airway disease Qualifiers: Asthma severity: moderate Asthma persistence: persistent Asthma complication type: uncomplicated Qualified Code(s): J45.40 - Moderate persistent asthma, uncomplicated Heat exhaustion Qualifiers: Encounter type: initial encounter Qualified Code(s): T67.5XXA - Heat exhaustion, unspecified, initial encounter - Discharge Information Prescriptions: predniSONE [Prednisone] 60 mg PO QAM 5 Days #15 tablet Doxycycline [Vibra-Tabs] 100 mg PO BID 10 Days #20 tablet Instructions: Acute Kidney Injury, Adult, Heat Exhaustion, Hypotension, E asy-to-Read, Dehydration, Adult, [id number], Community-Acquired Pneumonia, Adult, [id number] Referrals: Amor Lundberg MD [Primary Care Provider] - Forms: ED Department Discharge Additional Instructions: He did appear to be somewhat dehydrated and I suspect this was from some mild heat exhaustion. That caused your blood pressure to be low and it caused your symptoms of dizziness and near as out spell. He also appeared to have some pneumonia on both sides of your lung. You also have reactive airway disease that is an asthma-like condition. You improved significantly with IV fluids and the other medications given in the emergency department. He should avoid any heat exposure for the next week. Increase your fluid intake. Rest. Use your nebulizer treatment every 6 hours as needed for wheezing. He should also use your inhaler as needed. Medications as prescribed (doxycycline 100 mg, prednisone 20 mg). You were given a dose of antibiotics in the emergency department to treat your pneumonia. You are also given the equivalent of IV prednisone in the emergency department as well. Follow-up with your primary provider. Back to the emergency department for trouble breathing, high fever, worsening dizziness, severe weakness or any other concerning signs or symptoms. - My Orders Last 24 Hours: My Active Orders 08/26/20 21:58 Chest 2V [CR] Stat Sodium Chloride 0.9% [Saline Flush] 10 ml FLUSH ASDIRECTED PRN Peripheral IV Insertion Adult [OM.PC] Routine EKG 12 Lead [EK] Routine 08/26/20 21:59 EKG Documentation Completion [RC] ASDIRECTED 08/26/20 22:00 Sodium Chloride 0.9% [Normal Saline] 1,000 ml IV ASDIRECTED 08/27/20 00:56 RT Aerosol Therapy [RC] ASDIRECTED - Assessment/Plan Last 24 Hours: My Active Orders 08/26/20 21:58 Chest 2V [CR] Stat Sodium Chloride 0.9% [Saline Flush] 10 ml FLUSH ASDIRECTED PRN Peripheral IV Insertion Adult [OM.PC] Routine EKG 12 Lead [EK] Routine 08/26/20 21:59 EKG Documentation Completion [RC] ASDIRECTED 08/26/20 22:00 Sodium Chloride 0.9% [Normal Saline] 1,000 ml IV ASDIRECTED 08/27/20 00:56 RT Aerosol Therapy [RC] ASDIRECTED
[2020-08-26] MEDS ORDERED: Sodium Chloride 0.9% 10 ML Syringe FLUSH PRN (21:58)
[2020-08-26] MEDS ORDERED: Sodium Chloride 0.9% 500 ML IV ONE (22:00)
[2020-08-26] MEDS ORDERED: Sodium Chloride 0.9% 1,000 ML IV SCH (22:00)
[2020-08-27] MEDS ORDERED: Albuterol/Ipratropium 3.0-0.5 MG/3 ML Neb Soln NEB ONE (00:55)
[2020-08-27] MEDS ORDERED: Doxycycline 100 MG Tab PO ONE (00:55)
[2020-08-27] MEDS ORDERED: cefTRIAXone 1 GM Vial IVPUSH ONE (00:56)
[2020-08-27] MEDS ORDERED: methylPREDNISolone Sodium Succinate 125 MG/2 ML SDV IVPUSH ONE (00:56)
--- NOTE | 2020-08-28 08:32 | CR ---
INDICATION: Cough, shortness of breath. PA and lateral views of the chest were obtained 08/26/20 and compared with 05/12/17. Exogenous obesity is again noted. The aorta is tortuous with calcification in the arch as previously. 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 The heart size was slightly prominent, but not grossly enlarged. Upper lung field pulmonary vasculature appears somewhat prominent raising question of mild or early CHF. This should be correlated clinically as fluid overload could also be present, as well as other etiologies. No gross consolidating pneumonia or effusion was seen. Relatively poor inspiration emphasizes markings. It is difficult to exclude minimal patchy bronchopneumonia posteriorly at the lung bases and the right mid lung field due to heavy markings emphasized by the poor inspiration. IMPRESSION: 1. No definite acute process, but difficult to exclude areas of patchy bronchopneumonia and mild or early CHF in patient with probable ASHD. 2. Exogenous obesity. When clinically possible, full inspiration PA and lateral views of the chest may be helpful for further evaluation. MTDD
== END 2020-08-27 02:15 | disposition home or self-care (01) ==
LOC: FB.ED 21:19
DX: J18.9 Pneumonia, unspecified organism (principal); T67.5XXA Heat exhaustion, unspecified, initial encounter; J45.40 Moderate persistent asthma, uncomplicated; N17.9 Acute kidney failure, unspecified; I95.9 Hypotension, unspecified; E86.0 Dehydration; I25.10 Atherosclerotic heart disease of native coronary artery without angina pectoris; E78.00 Pure hypercholesterolemia, unspecified; E66.9 Obesity, unspecified; E11.9 Type 2 diabetes mellitus without complications; Z68.30 Body mass index [BMI] 30.0-30.9, adult; Z88.5 Allergy status to narcotic agent; Z91.030 Bee allergy status; Z79.84 Long term (current) use of oral hypoglycemic drugs; Z79.899 Other long term (current) drug therapy; Z20.822 Contact with and (suspected) exposure to COVID-19; R06.02 Shortness of breath
CPT/HCPCS: 36415; 71046; 80053; 83880; 84484; 85025; 85379; 86140; 93005; 93010; 94640; 96374; 96375; 99284; 99285-25; A9270-GY; J0696; J2930; J7030; J7040; J7620-GY; U0002

== ENCOUNTER 2021-11-27 12:43 | Emergency (ER) | payer MEDICARE, OTHER ==
[2021-11-27] MEDS ORDERED: Albuterol/Ipratropium 3.0-0.5 MG/3 ML Neb Soln NEB ONE (13:16)
[2021-11-27] MEDS ORDERED: methylPREDNISolone Sodium Succinate 125 MG/2 ML SDV IVPUSH ONE (13:16)
[2021-11-27] MEDS ORDERED: Morphine 2 MG/ML SYRINGE IVPUSH ONE (13:18)
[2021-11-27 13:31] LABS: ESTIMATED GFR 54 mL/min (>60)
== END 2021-11-27 14:26 | disposition home or self-care (01) ==
LOC: FB.ED 12:43
DX: R09.1 Pleurisy (principal); I25.10 Atherosclerotic heart disease of native coronary artery without angina pectoris; J44.9 Chronic obstructive pulmonary disease, unspecified; E11.9 Type 2 diabetes mellitus without complications; E66.9 Obesity, unspecified; Z68.35 Body mass index [BMI] 35.0-35.9, adult; Z88.8 Allergy status to other drugs, medicaments and biological substances; Z91.030 Bee allergy status; Z79.899 Other long term (current) drug therapy; Z79.84 Long term (current) use of oral hypoglycemic drugs; Z79.82 Long term (current) use of aspirin; Z79.4 Long term (current) use of insulin; Z90.49 Acquired absence of other specified parts of digestive tract
CPT/HCPCS: 36415; 71045; 80053; 83880; 84484; 85025; 85379; 93005; 96374; 96375; 99285; J2270; J2930; J7620

== ENCOUNTER 2022-01-26 22:06 | Emergency (ER) | payer MEDICARE, OTHER ==
[2022-01-27 00:31] VITALS: BP 86/68; PULSE 86
== END 2022-01-26 22:45 | disposition home or self-care (01) ==
LOC: FB.ED 22:06
DX: S60.444A External constriction of right ring finger, initial encounter (principal); I25.10 Atherosclerotic heart disease of native coronary artery without angina pectoris; E78.00 Pure hypercholesterolemia, unspecified; I10 Essential (primary) hypertension; J44.9 Chronic obstructive pulmonary disease, unspecified; K21.9 Gastro-esophageal reflux disease without esophagitis; E11.9 Type 2 diabetes mellitus without complications; E66.9 Obesity, unspecified; Z68.35 Body mass index [BMI] 35.0-35.9, adult; Z88.8 Allergy status to other drugs, medicaments and biological substances; Z91.030 Bee allergy status; Z79.899 Other long term (current) drug therapy; W49.04XA Ring or other jewelry causing external constriction, initial encounter; Z79.4 Long term (current) use of insulin
CPT/HCPCS: 12001; 99282

== ENCOUNTER 2024-04-19 07:09 | Day surgery (SDC) | payer MEDICARE, OTHER ==
[2024-04-19] MEDS ORDERED: Propofol 200 MG/20 ML SDV IV ONE (07:10)
[2024-04-19] MEDS ORDERED: Glycopyrrolate 0.2 MG/ML 5 ML MDV IV ONE (07:10)
[2024-04-19] MEDS ORDERED: Ketamine 500 mg/10 ML MDV IV ONE (07:10)
[2024-04-19] MEDS ORDERED: Sodium Chloride 0.9% 10 ML Syringe FLUSH PRN (07:15)
[2024-04-19] MEDS: Lactated Ringers 1,000 ML IV SCH (08:14)
[2024-04-19] MEDS: Simethicone Drops 40 MG/0.6 ML 30 ML Bottle ONE (08:27)
[2024-04-19 11:40] VITALS: BP 103/78; PULSE 97
== END 2024-04-19 10:15 | disposition home or self-care (01) ==
LOC: FB.SDS 07:09
PROVIDERS: ATTEND Surgery
DX: K57.31 Diverticulosis of large intestine without perforation or abscess with bleeding (principal); K42.0 Umbilical hernia with obstruction, without gangrene; E11.22 Type 2 diabetes mellitus with diabetic chronic kidney disease; I12.9 Hypertensive chronic kidney disease with stage 1 through stage 4 chronic kidney disease, or unspecified chronic kidney disease; N18.30 Chronic kidney disease, stage 3 unspecified; E66.9 Obesity, unspecified; Z79.899 Other long term (current) drug therapy; Z79.82 Long term (current) use of aspirin; Z79.4 Long term (current) use of insulin; Z91.030 Bee allergy status; Z88.8 Allergy status to other drugs, medicaments and biological substances; Z87.891 Personal history of nicotine dependence
CPT/HCPCS: 82947; A9270-GY; J1596; J2704; J3490; J7120

== ENCOUNTER 2024-05-17 16:05 | Emergency (ER) | payer MEDICARE, OTHER ==
[2024-05-17 16:42] VITALS: PULSE 88
[2024-05-17 16:58] LABS: BILIRUBIN,URINE NEGATIVE (NEGATIVE); GLUCOSE,URINE >1000 mg/dL (NORMAL); KETONES,URINE NEGATIVE (NEGATIVE); LEUKOCYTE ESTERASE,URINE NEGATIVE (NEGATIVE); LIPASE 14 U/L (16-77); NITRITE,URINE NEGATIVE (NEGATIVE); OCCULT BLOOD,URINE NEGATIVE (NEGATIVE); PRO B-TYPE NATRIUR PEPT,BNPPRO 297 pg/mL (<=125); PROTEIN,URINE NEGATIVE (NEGATIVE); UROBILINOGEN,URINE NORMAL (NEGATIVE)
[2024-05-17 17:00] LABS: APPEARANCE,URINE CLEAR (CLEAR); COLOR,URINE YELLOW (YELLOW)
[2024-05-17] MEDS: Iopamidol 755 Mg/ML 100 ML Bottle IV SCH (17:49)
[2024-05-17 19:35] VITALS: BP 133/96
== END 2024-05-17 19:20 | disposition home or self-care (01) ==
LOC: FB.ED 16:05
DX: R10.31 Right lower quadrant pain (principal); R10.32 Left lower quadrant pain; I25.10 Atherosclerotic heart disease of native coronary artery without angina pectoris; I12.9 Hypertensive chronic kidney disease with stage 1 through stage 4 chronic kidney disease, or unspecified chronic kidney disease; N18.30 Chronic kidney disease, stage 3 unspecified; E11.22 Type 2 diabetes mellitus with diabetic chronic kidney disease; E66.9 Obesity, unspecified; E78.00 Pure hypercholesterolemia, unspecified; J44.89 Other specified chronic obstructive pulmonary disease; K21.9 Gastro-esophageal reflux disease without esophagitis; Z68.38 Body mass index [BMI] 38.0-38.9, adult; R06.9 Unspecified abnormalities of breathing; Z86.16 Personal history of COVID-19; Z90.49 Acquired absence of other specified parts of digestive tract; Z88.8 Allergy status to other drugs, medicaments and biological substances; Z91.030 Bee allergy status; Z79.51 Long term (current) use of inhaled steroids; Z79.84 Long term (current) use of oral hypoglycemic drugs; Z79.82 Long term (current) use of aspirin; Z79.4 Long term (current) use of insulin; Z79.52 Long term (current) use of systemic steroids; Z79.899 Other long term (current) drug therapy
CPT/HCPCS: 74177; 81003; 83690; 83880; 84484; 99284; Q9967

== ENCOUNTER 2024-06-03 11:52 | Emergency (ER) | payer MEDICARE, OTHER ==
[2024-06-03] MEDS ORDERED: Sodium Chloride 0.9% 10 ML Syringe FLUSH PRN (11:59)
[2024-06-03 12:09] LABS: BASOPHILS ABSOLUTE AUTO 0.1 x10-3/uL (0.0-0.3); BASOPHILS PERCENT AUTO 0.6 % (0.3-3.8); EOSINOPHILS ABSOLUTE AUTO 0.4 x10-3/uL (0.0-0.6); HEMATOCRIT 41.6 % (38.3-50.1); HEMOGLOBIN 13.2 g/dL (12.9-17.7); LYMPHOCYTES PERCENT AUTO 16.3 % (15.8-45.3); MEAN CORPUSCULAR HGB CONC 31.8 g/dL (28.7-35.3); MEAN CORPUSCULAR VOLUME 78.6 fL (80.8-98.7); MONOCYTES PERCENT AUTO 8.4 % (5.5-15.2); NEUTROPHILS ABSOLUTE AUTO 8.9 x10-3/uL (1.7-6.9); NEUTROPHILS PERCENT AUTO 71.7 % (40.3-71.8); PLATELET COUNT,PLT 388 x10(3)uL (117-477); RED BLOOD CELL COUNT 5.29 x10(6)uL (3.90-5.90); RED CELL DISTRIBUTION WIDTH 17.5 % (12.4-15.0); WHITE BLOOD CELL COUNT,WBC 12.5 x10-3/uL (3.2-10.1)
[2024-06-03 12:13] LABS: BLOOD UREA NITROGEN,BUN 16 mg/dL (7-18); BUN/CREATININE RATIO 10.7 (9-20); CARBON DIOXIDE,CO2 25 mmol/L (21-32); CHLORIDE,CL 104 mmol/L (100-110); CREATININE 1.5 mg/dL (0.70-1.30); EST CRCL DRUG DOSING (CG) 43.07 mL/min; ESTIMATED GFR 49 mL/min (>60); GLUCOSE RANDOM 91 mg/dL (80-116); POTASSIUM,K 4.2 mmol/L (3.5-5.3); SODIUM,NA 140 mmol/L (135-145)
[2024-06-03 12:18] LABS: A/G RATIO 0.7; ALANINE AMINOTRANSFERASE,ALT 21 U/L (12-36); ALBUMIN 3.5 g/dL (3.2-4.6); ALKALINE PHOSPHATASE 62 IU/L (56-112); ASPARTATE AMNIOTRANSFERASE,AST 19 IU/L (5-25); BILIRUBIN TOTAL 0.4 mg/dL (0.1-1.3); PROTEIN TOTAL,TP 8.5 g/dL (6.0-8.0)
[2024-06-03 12:25] LABS: C-REACTIVE PROTEIN 1.4 mg/dL (<0.50); TROPONIN I 11.9 pg/mL (4.0-60.3)
[2024-06-03] MEDS ORDERED: cefTRIAXone 1 GM Vial IM ONE (13:48)
[2024-06-03] MEDS: cefTRIAXone 1 GM Vial IVPUSH ONE (14:04)
[2024-06-03] MEDS: Furosemide 40 MG/4 ML VIAL IVPUSH ONE (14:32)
[2024-06-03 15:10] VITALS: PULSE 84
[2024-06-03 15:48] VITALS: BP 104/65
== END 2024-06-03 16:45 ==
LOC: FB.ED 11:52
DX: J18.9 Pneumonia, unspecified organism (principal); I13.0 Hypertensive heart and chronic kidney disease with heart failure and stage 1 through stage 4 chronic kidney disease, or unspecified chronic kidney disease; I50.9 Heart failure, unspecified; J44.1 Chronic obstructive pulmonary disease with (acute) exacerbation; N18.30 Chronic kidney disease, stage 3 unspecified; I25.10 Atherosclerotic heart disease of native coronary artery without angina pectoris; K21.9 Gastro-esophageal reflux disease without esophagitis; E11.40 Type 2 diabetes mellitus with diabetic neuropathy, unspecified; E11.22 Type 2 diabetes mellitus with diabetic chronic kidney disease; E66.9 Obesity, unspecified; Z86.16 Personal history of COVID-19; Z87.891 Personal history of nicotine dependence; Z90.49 Acquired absence of other specified parts of digestive tract; Z79.899 Other long term (current) drug therapy; Z79.4 Long term (current) use of insulin; Z79.84 Long term (current) use of oral hypoglycemic drugs; Z79.82 Long term (current) use of aspirin; Z79.51 Long term (current) use of inhaled steroids; Z88.8 Allergy status to other drugs, medicaments and biological substances; Z91.030 Bee allergy status; Z68.41 Body mass index [BMI] 40.0-44.9, adult
CPT/HCPCS: 36415; 71045; 80053; 83735; 83880; 84484; 85025; 86140; 87040; 87428-QW; 93005; 93010; 96374; 96375; 99285; 99285-25; J0696; J1940

== ENCOUNTER 2024-07-07 21:43 | Emergency (ER) | payer MEDICARE, OTHER ==
[2024-07-07 22:05] LABS: BASOPHILS ABSOLUTE AUTO 0.1 x10-3/uL (0.0-0.3); EOSINOPHILS ABSOLUTE AUTO 0.4 x10-3/uL (0.0-0.6); EOSINOPHILS PERCENT AUTO 3.8 % (0.1-6.8); HEMATOCRIT 40.2 % (38.3-50.1); LYMPHOCYTES ABSOLUTE AUTO 2.9 x10-3/uL (0.5-4.5); LYMPHOCYTES PERCENT AUTO 28.9 % (15.8-45.3); MEAN CORPUSCULAR HEMOGLOBIN 24.9 pg (27.0-33.3); MEAN CORPUSCULAR HGB CONC 32.3 g/dL (28.7-35.3); MEAN CORPUSCULAR VOLUME 76.9 fL (80.8-98.7); MEAN PLATELET VOLUME 7.1 fL (6.7-11.0); MONOCYTES ABSOLUTE AUTO 0.9 x10-3/uL (0.0-1.2); MONOCYTES PERCENT AUTO 8.7 % (5.5-15.2); NEUTROPHILS ABSOLUTE AUTO 5.7 x10-3/uL (1.7-6.9); NEUTROPHILS PERCENT AUTO 57.6 % (40.3-71.8); PLATELET COUNT,PLT 400 x10(3)uL (117-477); RED CELL DISTRIBUTION WIDTH 18.2 % (12.4-15.0)
[2024-07-07 22:08] VITALS: BP 124/78; PULSE 90
[2024-07-07 22:10] LABS: BLOOD UREA NITROGEN,BUN 21 mg/dL (7-18); CALCIUM 9.2 mg/dL (8.6-10.2); CARBON DIOXIDE,CO2 29 mmol/L (21-32); CHLORIDE,CL 103 mmol/L (100-110); CREATININE 1.4 mg/dL (0.70-1.30); EST CRCL DRUG DOSING (CG) 49.25 mL/min; ESTIMATED GFR 53 mL/min (>60); GLUCOSE RANDOM 121 mg/dL (80-116); SODIUM,NA 141 mmol/L (135-145)
[2024-07-07 22:16] LABS: A/G RATIO 0.7; ALANINE AMINOTRANSFERASE,ALT 23 U/L (12-36); ALBUMIN 3.3 g/dL (3.2-4.6); ALKALINE PHOSPHATASE 76 IU/L (56-112); ASPARTATE AMNIOTRANSFERASE,AST 15 IU/L (5-25); BILIRUBIN TOTAL 0.2 mg/dL (0.1-1.3)
[2024-07-07 22:19] LABS: RED BLOOD CELL COUNT 5.23 x10(6)uL (3.90-5.90)
[2024-07-07 22:20] LABS: BASE EXCESS VENOUS,POC 1 mmol/L (-2 - 3+); PCO2 VENOUS,POC 45 mmHg (41-51); PH VENOUS,POC 7.39 pH Units (7.32-7.43)
[2024-07-07 22:22] LABS: TROPONIN I 10.9 pg/mL (4.0-60.3)
[2024-07-07] MEDS: Acetaminophen 500 MG Tab PO ONE (22:26)
[2024-07-07] MEDS: Albuterol/Ipratropium 3.0-0.5 MG/3 ML Neb Soln NEB ONE ×2 (22:26→22:57)
[2024-07-07] MEDS: Aspirin 81 MG Tab.EC PO ONE (22:27)
[2024-07-07] MEDS: Ketorolac 30 MG/ML SDV IVPUSH ONE (22:28)
[2024-07-07] MEDS: Dexamethasone 4 MG/ML 5 ML MDV IVPUSH ONE (22:29)
[2024-07-07] MEDS: Morphine 2 MG/ML SYRINGE IVPUSH ONE (22:31)
[2024-07-07] MEDS: Azithromycin 500 MG Tab PO ONE (22:58)
[2024-07-07 23:12] LABS: INFLUENZA A NAA NEGATIVE (NEGATIVE); INFLUENZA B NAA NEGATIVE (NEGATIVE); RESPIRATORY SYNCYTIAL VIR NAA NEGATIVE (NEGATIVE)
[2024-07-08 00:03] LABS: CORONAVIRUS COVID-19 NAA NEGATIVE (NEGATIVE)
== END 2024-07-08 00:29 | disposition home or self-care (01) ==
LOC: FB.ED 21:43
DX: J44.1 Chronic obstructive pulmonary disease with (acute) exacerbation (principal); R79.82 Elevated C-reactive protein (CRP); R09.1 Pleurisy; J45.909 Unspecified asthma, uncomplicated; E11.9 Type 2 diabetes mellitus without complications; Z88.8 Allergy status to other drugs, medicaments and biological substances; Z79.82 Long term (current) use of aspirin; Z79.899 Other long term (current) drug therapy; Z79.4 Long term (current) use of insulin; Z86.16 Personal history of COVID-19; Z90.49 Acquired absence of other specified parts of digestive tract
CPT/HCPCS: 0241U; 36415; 71046; 80053; 83880; 84484; 85025; 86140; 93005; 96374; 96375; 99285; A9270; J1100; J1885; J2270

== ENCOUNTER 2024-09-23 14:40 | Emergency (ER) | payer MEDICARE, OTHER ==
[2024-09-23 16:30] VITALS: BP 125/87; PULSE 93
== END 2024-09-23 16:04 | disposition home or self-care (01) ==
LOC: FB.ED 14:40
DX: J44.1 Chronic obstructive pulmonary disease with (acute) exacerbation (principal); E78.00 Pure hypercholesterolemia, unspecified; J45.909 Unspecified asthma, uncomplicated; K21.9 Gastro-esophageal reflux disease without esophagitis; T50.905A Adverse effect of unspecified drugs, medicaments and biological substances, initial encounter; Z88.8 Allergy status to other drugs, medicaments and biological substances; Z79.899 Other long term (current) drug therapy; Z79.84 Long term (current) use of oral hypoglycemic drugs; Z86.16 Personal history of COVID-19; Z90.49 Acquired absence of other specified parts of digestive tract
CPT/HCPCS: 99284